=== PATIENT | male | born 1990 | race Caucasian/White ===

== ENCOUNTER 2017-04-30 23:17 | Emergency (ER) | payer MEDICAID ==
[2017-04-30 23:32] VITALS: BP 131/101; PULSE 105; RESP 16; TEMP 98.1; O2SAT 93
[2017-04-30] MEDS ORDERED: OXYCODONE/APAP 5/325MG PREPACK#4 BTL TAKEHOME ONE (23:54)
[2017-04-30] MEDS ORDERED: AMOXICILLIN/CLAVULANATE POT 875/125 MG TAB PO ONE (23:54)
[2017-04-30] MEDS ORDERED: OXYCODONE/APAP 5/325 TAB PO ONE (23:54)
--- NOTE | 2017-04-30 23:54 | EDPHY ---
H & P Stated Complaint: tooth abcess Time Seen by Provider: 04/30/17 23:48 HPI/ROS: Chief complaint: Toothache History of present illness: This is a 27-year-old male who presents to the emergency department for evaluation of toothache. Patient reports the onset of pain approximately 5 days ago. He has noticed pain in the left upper aspect of the jaw. Associated swelling. He is concerned he is developing an abscess. Denies other associated signs or symptoms including no fevers, no difficulty opening or closing his mouth, no difficulty swallowing, no difficulty talking, no difficulty breathing. He does not currently have a dentist. - Personal History Current Tetanus/Diphtheria Vaccine: No - Medical/Surgical History Hx Asthma: No Hx Chronic Respiratory Disease: No Hx Diabetes: No Hx Cardiac Disease: No Hx Renal Disease: No Hx Cirrhosis: No Hx Alcoholism: No Hx HIV/AIDS: No Hx Splenectomy or Spleen Trauma: No Other PMH: PSHx: wisdom tooth extraction. PMHx: migraines, hyperthyroidism - Social History Smoking Status: Current every day smoker - Physical Exam Exam: General: Alert, nontoxic Mouth/ENT: Poor dental hygiene with multiple missing teeth in significant DKA to the rest of the teeth. Pain appears to be the left upper molar. Mild surrounding erythema and edema. No pustular discharge. No other acute findings in the mouth. Oropharynx is unremarkable. There is no hoarseness, no drooling, trismus, no stridor. Skin: No erythema or edema the face or neck. Constitutional: Initial Vital Signs Temperature (C) 36.7 C 04/30/17 23:29 Heart Rate 105 H 04/30/17 23:29 Respiratory Rate 16 04/30/17 23:29 Blood Pressure 131/101 H 04/30/17 23:29 O2 Sat (%) 93 04/30/17 23:29 O2 Delivery Mode Room Air Allergies/Adverse Reactions: No Known Allergies Allergy (Unverified 04/30/17 23:28) Home Medications: Medication Instructions Recorded AMOXICILLIN TRIHYDRATE [Amoxil] 875 mg PO BID 7 Days 04/30/17 Medical Decision Making ED Course/Re-evaluation: Patient seen under the supervision of my secondary supervising physician Dr. Jovanny Villalpando. Patient presents to the emergency department for dental pain. I am concerned he is developing a dental infection. No evidence of complications such as large abscess formation compromising airway. He will be started on antibiotics. He is given a short course of pain medicine. He is asked to follow up with a dentist for definitive care and referral information is provided. Return precautions are given. Differential Diagnosis: Included but not limited to dental david, dental abscess, unlikely facial cellulitis, Mitul's angina or retropharyngeal abscess - Data Points Medications Given: Discontinued Medications Amoxicillin/Clavulanate Potassium (Augmentin 875mg) 875 mg PO EDNOW ONE PRN Reason: Protocol Stop: 04/30/17 23:55 Last Admin: 05/01/17 00:04 Dose: 875 mg Oxycodone/Acetaminophen (Percocet 5/325) 1 tab PO EDNOW ONE Stop: 04/30/17 23:55 Last Admin: 05/01/17 00:04 Dose: 1 tab Oxycodone/Acetaminophen (Percocet 5/325mg Prepack#4) 1 btl TAKEHOME EDNOW ONE Stop: 04/30/17 23:55 Last Admin: 05/01/17 00:05 Dose: 1 btl Departure - Departure Disposition: Home, Routine, Self-Care Clinical Impression: Dental abscess Condition: Good Instructions: Oxycodone/Acetaminophen (By mouth), Dental Abscess (ED) Additional Instructions: Follow-up with a dentist for continued evaluation and care In regards to pain control see the following: Use ibuprofen [600] mg [3] times a day for the next 2-3 days for pain In addition You have been prescribed Percocet for pain. Percocet contains Tylenol, do not take extra Tylenol/acetaminophen/Apap with it. It is sedating. Take all antibiotics as prescribed until finished even feeling better If symptoms worsen or new symptoms develop return to the emergency room for recheck Referrals: [facility] [Outside] - As per Instructions [facility] [Outside] - As per Instructions [facility] [Outside] - As per Instructions NONE *PRIMARY CARE P,. [Primary Care Provider] - As per Instructions Prescriptions: AMOXICILLIN TRIHYDRATE [Amoxil] 875 mg PO BID 7 Days
== END 2017-05-01 00:15 | disposition home or self-care (01) ==
DX: K04.7 Periapical abscess without sinus (principal); F17.200 Nicotine dependence, unspecified, uncomplicated

== ENCOUNTER 2017-06-21 19:43 | Inpatient (IN) | payer MEDICAID ==
[2017-06-21] MEDS ORDERED: OLANZapine DISINTEGR 5 MG TAB PO ONE (19:53)
--- NOTE | 2017-06-21 19:55 | EDPHY ---
H & P - Medical/Surgical History Hx Asthma: No Hx Chronic Respiratory Disease: No Hx Diabetes: No Hx Cardiac Disease: No Hx Renal Disease: No Hx Cirrhosis: No Hx Alcoholism: No Hx HIV/AIDS: No Hx Splenectomy or Spleen Trauma: No Other PMH: PSHx: wisdom tooth extraction. PMHx: migraines, hyperthyroidism - Social History Smoking Status: Current every day smoker Time Seen by Provider: 06/21/17 19:47 HPI/ROS: CHIEF COMPLAINT: "I think I'm Amado" HISTORY OF PRESENT ILLNESS: 27-year-old male prior history of mental health disorder but will not elaborate on specifics , arrives on M1 hold after he was found knocking on his neighbor's door, naked stating that he was Amado. He denies suicidal or homicidal ideation. States that he feels like he is "here but not here". Denies self-injury. PRIMARY CARE PROVIDER: REVIEW OF SYSTEMS: A ten point review of systems was performed and is negative with the exception of the items mentioned in the HPI PAST MEDICAL & SURGICAL HISTORY: schizophrenia SOCIAL HISTORY:denies alcohol or drug use PHYSICAL EXAM (Prior to examination, patient consented to physical exam, hands were washed and my usual and customary physical exam procedures followed) 1) GENERAL: Well-developed, well-nourished, alert and oriented. Appears to be in no acute distress. 2) HEAD: Normocephalic, atraumatic 3) HEENT: Pupils equal, round, reactive to light bilaterally. Sclera anicteric. 4) NECK: Full range of motion, no meningeal signs. 5) LUNGS: Clear auscultation bilaterally, no wheezes, no rhonchi, no retractions. 6) HEART: Regular rate and rhythm, no murmur, no heave, no gallop. 7) ABDOMEN: No guarding, no rebound, no focal tenderness, 8) MUSCULOSKELETAL: No peripheral edema or discoloration. 9) BACK: no visual or palpable abnormality. 10) SKIN: No rash, no petechiae. 11) Psychiatric: Patient is oriented X 3, he is calm, appears to be responding to internal stimuli DIFFERENTIAL DIAGNOSIS: in no particular include but limited to cynthia, psychosis, medication noncompliance (Taco,D Monica) Constitutional: Initial Vital Signs Temperature (C) 36.4 C 06/21/17 19:58 Heart Rate 87 06/21/17 19:58 Respiratory Rate 20 06/21/17 19:58 Blood Pressure 147/91 H 06/21/17 19:58 O2 Sat (%) 99 06/21/17 19:58 O2 Delivery Mode Room Air Allergies/Adverse Reactions: No Known Allergies Allergy (Unverified 04/30/17 23:28) Home Medications: Medication Instructions Recorded Herbals/Supplements -Info Only 1 ea PO DAILY 06/22/17 Methimazole 10 mg PO DAILY 06/22/17 Medical Decision Making ED Course/Re-evaluation: 2 am: Care turned over to Dr Avelar ([place]) 6:00 a.m.- The patient has been stable during my shift. He is awaiting psychiatric evaluation. He is medically clear. I anticipate at 7:00 a.m. the case will be signed out to the oncoming provider Dr. Mehta pending results of evaluation. (Meghan Avelar) 1327: The patient has been stable during my shift. We have met all of his psychiatric needs. We are looking for psychiatric placement. (Umseh Mehta) I did not see this patient while he was in the emergency department. However his care was discussed with the PA while the patient was in the department. I agree with treatment plan and management (Greg Linder) Other Provider: 22:40 care assumed by me from Dr. Dunlap pending transfer to [address] [place] [address]. The EMTALA has been completed by Dr Dunlap. (Sy Nelson) Care assumed at 1500 from Janine with inpatient psychiatric placement pending. 1930: The patient will be transferred to [facility] for inpatient psychiatric hospital bed not available at this facility, in stable condition; accepting physician is juliann Jon. (Mike Dunlap) - Data Points Laboratory Results: Laboratory Results 06/21/17 19:50 06/21/17 19:50 Medications Given: Discontinued Medications Olanzapine (Zyprexa Zydis) 5 mg PO EDNOW ONE Stop: 06/21/17 19:54 Last Admin: 06/21/17 20:11 Dose: 5 mg Departure - Departure Disposition: [facility] IP Clinical Impression: Acute psychosis Condition: Fair
[2017-06-21 20:04] LABS: % IMMATURE GRANULYOCYTES 0.3 % (0.0-1.1); ABSOLUTE IMMATURE GRANULOCYTES 0.02 10^3/uL (0.00-0.10); ADD DIFF? NO; ADD MORPH? NO; ADD SCAN? NO; ATYPICAL LYMPHOCYTE FLAG 20 (0-99); FRAGMENT RBC FLAG 0 (0-99); HEMATOCRIT 45.8 % (40.0-51.0); HEMOGLOBIN 16.3 g/dL (13.7-17.5); LEFT SHIFT FLG 0 (0-99); LIPEMIA HEMOLYSIS FLAG 90 (0-99); MEAN CELL HEMOGLOBIN 29.7 pg (27.9-34.1); MEAN CELL HEMOGLOBIN CONCENTR. 35.6 g/dL (32.4-36.7); MEAN CELL VOLUME 83.6 fL (81.5-99.8); MEAN PLATELET VOLUME 10.6 fL (8.7-11.7); PLATELET CLUMPS FLAG 90 (0-99); PLATELET COUNT 327 10^3/uL (150-400); RED BLOOD CELL COUNT 5.48 10^6/uL (4.40-6.38); RED CELL DISTRIBUTION WIDTH 12.2 % (11.5-15.2)
[2017-06-21 20:12] LABS: ANION GAP 21 mEq/L (8-16); CALCIUM 10.3 mg/dL (8.5-10.4); CARBON DIOXIDE 22 mEq/l (22-31); CHLORIDE 94 mEq/L (97-110); CREATININE 0.7 mg/dL (0.7-1.3); ETHANOL SERUM < 10 mg/dL (0-10); GLOMERULAR FILTRATION RATE > 60; GLUCOSE 97 mg/dL (70-100); POTASSIUM 4.2 mEq/L (3.5-5.2); SALICYLATE < 1.0 mg/dL (2.0-20.0); SODIUM 137 mEq/L (134-144)
[2017-06-23] MEDS ORDERED: ACETAMINOPHEN 325 MG TAB PO PRN (02:16)
[2017-06-23] MEDS ORDERED: MAGNESIUM HYDROXIDE 30 ML UDCUP PO PRN (02:16)
[2017-06-23] MEDS ORDERED: LORazepam 1 MG TAB PO PRN (02:16)
[2017-06-23] MEDS ORDERED: OLANZapine DISINTEGR 5 MG TAB PO PRN (02:16)
[2017-06-23] MEDS ORDERED: MAG HYDROX/AL HYDROX/SIMETH 30 ML UDCUP PO PRN (02:16)
[2017-06-23] MEDS ORDERED: METHIMAZOLE 10 MG PO SCH (12:30)
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
[2017-06-23] MEDS ORDERED: METHIMAZOLE 5 MG TAB PO SCH (14:30)
--- NOTE | 2017-06-23 18:34 | PDGENHP ---
History and Physical - History of Present Illness Reason for consultation: Medicine consult for Inpt Psych. Pt is a 27yo M who was admitted after he had an episode of altered mentation. He was reported to have been wandering around naked and showed up at his neighbor's house saying he was [place]. Police brought him to the [facility] ED, where he was found to be hyperthyroid. He was transferred to [facility] inpatient Psych. He has been feeling much better and back to his normal baseline self in the last day. He denies SI/HI. He denies hallucinations. He denies mood swings. He does not remember much from yesterday's episode. He admits to h/o hyperthyroidism, for which he was Tx'd w/ methimazole from Oct 2015-Aug 2016. He was noncompliant w/ the medication from Sep - May 2017. He and his brother, who is present at bedside, said he had a lot of contributing stressors in his life. Pt decided to resume the maintenance dose of methimazole 3 weeks ago. He had some workup previously - which included a normal thyroid US. He was supposed to get a thyroid uptake scan but had not completed it. Associated symptoms: fatigue. PMH: hyperthyroidism. PSH: oral/dental surgeries - wisdome teeth, molar extractions. All: NKA. Meds: methimazole 10mg QD. FH: CAD, arthritis, gout, prostate cancer. Mother - thyroid cancer. Great GF - bipolar. SH: Denies tobacco or alcohol use. Uses marijuana occasionally. Lives w/ roommates in a community house. Works for an [employer] company. ROS: 14pt ROS was negative except as per HPI. VS reviewed. Gen: alert, thin male A&Ox3 and in NAD. HEENT: NC, EOMI, +temporal wasting. Neck: no thyromegaly or thyroid bruit. CV: RRR no MRG. Resp: CTAB no RRW. Abd: SND, BS present, nontender. MSK: nl muscle tone, bulk. Neuro: CN II-XII intact. Psych: approp mood/affect. : no CVA tenderness or suprapubic tenderness. Skin: no skin rash. Labs: WBC 6, Hgb 16, Plt 327. BMP - normal. TSH < 0.015. Utox - negative. A/P: Hyperthyroidism - check free T3/T4 levels and thyroid antibodies to eval for AI disease. Increase frequency of methimazole for mod hyperthyroidism. Concern that his episode of AMS may have stemmed from uncontrolled hyperthyroidism. Recommended that pt remain compliant w/ medication. Eventually he can return to once a day dosing of methimazole, but needs to FU w/ PCP regularly. He does also need that thyroid uptake scan, which is an outpt test. Encephalopathy - resolved. Underweight BMI - pt denies anorexia. Likely 2/2 increased metabolism from hyperthyroid. History Information - Allergies/Home Medication List Allergies/Adverse Reactions: No Known Allergies Allergy (Unverified 04/30/17 23:28) - Social History Smoking Status: Former smoker Review of Systems Review of Systems: Physical Exam Physical Exam: Temp Pulse Resp BP Pulse Ox 36.6 C 78 15 125/73 H 97 06/23/17 01:18 06/23/17 01:18 06/23/17 01:18 06/23/17 01:18 06/23/17 01:18 Lab Data & Imaging Review 06/21/17 19:50 06/21/17 19:50 WBC 5.97 10^3/uL (3.80-9.50) 06/21/17 19:50 RBC 5.48 10^6/uL (4.40-6.38) 06/21/17 19:50 Hgb 16.3 g/dL (13.7-17.5) 06/21/17 19:50 Hct 45.8 % (40.0-51.0) 06/21/17 19:50 MCV 83.6 fL (81.5-99.8) 06/21/17 19:50 MCH 29.7 pg (27.9-34.1) 06/21/17 19:50 MCHC 35.6 g/dL (32.4-36.7) 06/21/17 19:50 RDW 12.2 % (11.5-15.2) 06/21/17 19:50 Plt Count 327 10^3/uL (150-400) 06/21/17 19:50 MPV 10.6 fL (8.7-11.7) 06/21/17 19:50 Neut % (Auto) 65.9 % (39.3-74.2) 06/21/17 19:50 Lymph % (Auto) 26.3 % (15.0-45.0) 06/21/17 19:50 [place] % (Auto) 7.0 % (4.5-13.0) 06/21/17 19:50 Eos % (Auto) 0.0 % (0.6-7.6) L 06/21/17 19:50 Baso % (Auto) 0.5 % (0.3-1.7) 06/21/17 19:50 Nucleat RBC Rel Count 0.0 % (0.0-0.2) 06/21/17 19:50 Absolute Neuts (auto) 3.93 10^3/uL (1.70-6.50) 06/21/17 19:50 Absolute Lymphs (auto) 1.57 10^3/uL (1.00-3.00) 06/21/17 19:50 Absolute Monos (auto) 0.42 10^3/uL (0.30-0.80) 06/21/17 19:50 Absolute Eos (auto) 0.00 10^3/uL (0.03-0.40) L 06/21/17 19:50 Absolute Basos (auto) 0.03 10^3/uL (0.02-0.10) 06/21/17 19:50 Absolute Nucleated RBC 0.00 10^3/uL (0-0.01) 06/21/17 19:50 Immature Gran % 0.3 % (0.0-1.1) 06/21/17 19:50 Immature Gran # 0.02 10^3/uL (0.00-0.10) 06/21/17 19:50 Sodium 137 mEq/L (134-144) 06/21/17 19:50 Potassium 4.2 mEq/L (3.5-5.2) 06/21/17 19:50 Chloride 94 mEq/L (97-110) L 06/21/17 19:50 Carbon Dioxide 22 mEq/l (22-31) 06/21/17 19:50 Anion Gap 21 mEq/L (8-16) H 06/21/17 19:50 BUN 27 mg/dL (7-23) H 06/21/17 19:50 Creatinine 0.7 mg/dL (0.7-1.3) 06/21/17 19:50 Estimated GFR > 60 06/21/17 19:50 Glucose 97 mg/dL (70-100) 06/21/17 19:50 Calcium 10.3 mg/dL (8.5-10.4) 06/21/17 19:50 TSH < 0.015 uIU/mL (0.465-4.680) L 06/22/17 07:50 Salicylates < 1.0 mg/dL (2.0-20.0) L 06/21/17 19:50 Urine Opiates Screen NEGATIVE (NEGATIVE) 06/22/17 02:48 Acetaminophen < 10 mcg/mL (10-30) L 06/21/17 19:50 Urine Barbiturates NEGATIVE (NEGATIVE) 06/22/17 02:48 Ur Phencyclidine Scrn NEGATIVE (NEGATIVE) 06/22/17 02:48 Ur Amphetamine Screen NEGATIVE (NEGATIVE) 06/22/17 02:48 U Benzodiazepines Scrn NEGATIVE (NEGATIVE) 06/22/17 02:48 Urine Cocaine Screen NEGATIVE (NEGATIVE) 06/22/17 02:48 U Marijuana (THC) Screen NON-NEGATIVE (NEGATIVE) H 06/22/17 02:48 Ethyl Alcohol < 10 mg/dL (0-10) 06/21/17 19:50 Assessment & Plan Assessment: Acute psychosis (Acute)
[2017-06-23] MEDS: METHIMAZOLE 5 MG TAB PO SCH (21:57)
[2017-06-24 06:50] VITALS: BP 121/72; PULSE 70; RESP 14; TEMP 97.4; O2SAT 98
[2017-06-24] MEDS: METHIMAZOLE 5 MG TAB PO SCH (09:22)
--- NOTE | 2017-06-24 15:49 | BDS ---
[f rep st] BEHAVIORAL HEALTH DISCHARGE SUMMARY ADMISSION DIAGNOSIS: Substance-induced psychotic disorder, cannabis use disorder. IDENTIFICATION: This is a 27-year-old single, white male who lives with 2 roommates. 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 BRIEF PSYCHIATRIC HISTORY: The patient reports getting counseling for depression several years ago when he was in [place]. He denies prior psychiatric hospitalizations. He denies past suicide attempts, violence toward others, or any past diagnosis of severe mental illness. The patient was not in outpatient mental health care prior to admission. BRIEF MEDICAL HISTORY: The patient has a history of hyperthyroidism treated with methimazole at [facility] here in [place]. He denies other medical problems. He denies traumatic brain injury or seizures. REASON FOR ADMISSION: The patient was taken to the emergency department on June 21, 2017, after the patient was having a psychotic episode. The patient apparently was walking through the community naked. He had disorganized thought process, paranoid about being monitored, having ideas of reference, disorganized thinking, and apparently was tapping randomly on car windows. The patient was taken to the emergency department on an M1 hold by police. In the emergency department, the patient was agitated, disorganized, paranoid, and had word salad. He was not suicidal or homicidal, but was a poor historian with poor insight, impaired judgment. HOSPITAL COURSE: The patient, in the emergency department, received both olanzapine 5 mg and lorazepam. The patient was transferred over to the inpatient psychiatric unit on June 23. The patient was evaluated by Dr. Woodward. Please see his initial psychiatric assessment and history. The patient, on the evening of June 23, received 5 mg of olanzapine and 1 mg of Ativan. He slept 9 hours. The patient was interviewed on the unit with his brother and [id number]. The patient reports that he lives with 2 roommates. 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 His brother and [id number] live in the next building. The patient reports that he had a dental extraction for a tooth abscess 2 weeks prior to admission. He reports prior to that having stable mental health but regular cannabis use. He reports, after the dental extraction , taking Percocet for a few days and receiving antibiotics for a dental abscess. He reports in the 2 weeks prior to admission following the treatment for the dental abscess, that he had severe insomnia, only sleeping a few hours at night. He also felt more emotional and anxious. He denied suicidal or homicidal thoughts. He did endorse possibly having some paranoia about being watched and monitored. He reports that these symptoms have remitted currently. He reports that he feels calm, does not feel anxious. Denies thoughts to hurt himself or others. He is aware that he was hospitalized for a psychotic episode. He reports he is willing to take the olanzapine and lorazepam for sleep at night to maintain his mental health stability after discharge. He is also aware that marijuana can cause psychotic symptoms and anxiety symptoms and that severe hyperthyroidism can cause psychiatric disturbance. The patient's brother reports that he is a regular support, that he is able to monitor the patient's safety and monitor the patient's compliance with medication. The patient did report that he was diagnosed with hyperthyroidism approximately 1 year ago and has been getting methimazole from [facility], but has had weight loss and poor food intake; his labs on the unit are consistent with continued hyperthyroidism however. The patient denies any history of restricting his food intake, fear of gaining weight, bingeing or purging, or laxative or diuretic abuse. He reports he is aware that he is underweight and would like to gain weight. The patient's brother on the unit here is agreeable to assist the patient in filling his prescription medications after discharge and assisting the patient in attending medical followup appointments at [facility] and psychiatric followup at [facility]. Of note, on the unit, the patient was observed to be sleeping overnight and was calm and appropriate with staff this morning. LABS: White blood cell count 5.9, hemoglobin 16.3, platelet count 327. Sodium 137, potassium 4.2, creatinine 0.7, glucose 97, calcium 10.3. TSH is suppressed and below 0.015. Free T4 is 3.1, free T3 is 7.1 - both are elevated. Urine drug screen was positive for cannabis only. CONSULTATIONS: The patient was seen by an internal medicine physician on June 23. CONDITION AT DISCHARGE: He is an alert white male who is very thin. He is pleasant and cooperative. No tremors. His speech is regular rate and rhythm. His thoughts are organized. He denies any thoughts to hurt himself or others. He denies auditory hallucinations or paranoia. His memory is fair concerning recent events. His insight is good. His judgment is appropriate. DISCHARGE DIAGNOSIS: 1. Cannabis related psychotic disorder 2. Cannabis Use Disorder 3. Hyperthyroidism 4. Rule out Schizophreniform Disorder or Bipolar Disorder with psychotic features DISPOSITION: The patient will be leaving today with his brother who is on the unit and reviewing the patient's discharge medication and discharge followup appointments with the nursing staff. DISCHARGE MEDICATIONS: Methimazole 10 mg p.o. t.i.d. for hyperthyroidism; lorazepam 0.5 mg p.o. q.h.s., p.r.n. insomnia #10; olanzapine 5 mg p.o. q.h.s. FOLLOWUP: The patient will follow up at [facility] for hyperthyroidism and [facility] for psychiatric followup. LEGAL STATUS: The patient was admitted on an M1 hold. He will be discharged to receive outpatient treatment on a voluntary basis. INFORMED CONSENT: The patient was given information about the importance of taking the methimazole for his hyperthyroidism and importance of follow up medical care to further treat this condition. We discussed that hyperthyroidism could cause anorexia, anxiety, psychosis and severe weight loss. The patient was counseled about the risks of olanzapine including weight gain, diabetes, tardive dyskinesia and sedation. He was also given warnings about the risks of lorazepam including driving impairment, severe sedation. He was warned that cannabis can cause anxiety, panic, paranoia, and disorganized thinking. /[id number]/MODL MTDD
== END 2017-06-24 14:20 | disposition home or self-care (01) | DRG 897 ==
LOC: EDUNIT# → BBEH 06-23 00:30
PROVIDERS: ADMIT Psychiatry & Neurology Psychiatry
DX: F12.159 Cannabis abuse with psychotic disorder, unspecified (principal); E03.9 Hypothyroidism, unspecified; Z91.14 Patient's other noncompliance with medication regimen; R63.6 Underweight; Z68.1 Body mass index [BMI] 19.9 or less, adult; Z65.8 Other specified problems related to psychosocial circumstances
CPT/HCPCS: 80305; 84481-90; 86800-90; G0480